=== PATIENT | male | born 1995 | race Caucasian/White ===

== ENCOUNTER 2017-06-10 20:50 | Emergency (ER) | payer OTHER ==
[~2017-06-10] VITALS: Ht 190.5 cm; Wt 123.0 kg
[~2017-06-10 20:50] MED LIST: GLUCOPHAGE1000 MG PO; METFORMIN HCL1000 MG PO; METFORMIN HCL500 MG PO; MOTRIN600 MG PO
[2017-06-10] MEDS ORDERED: NAPROSYN500 MG PO (22:32)
[2017-06-10 23:01] VITALS: BP 134/60
== END 2017-06-10 23:01 | disposition home or self-care (01) ==
LOC: EME 20:50 → EXP 20:50
DX: S83.92XA Sprain of unspecified site of left knee, initial encounter (principal); S80.02XA Contusion of left knee, initial encounter; W18.30XA Fall on same level, unspecified, initial encounter; Y93.67 Activity, basketball
CPT/HCPCS: 73564; 99281; 99284

== ENCOUNTER 2017-08-17 19:26 | Emergency (ER) | payer OTHER ==
[~2017-08-17] VITALS: Ht 190.5 cm; Wt 118.2 kg
[~2017-08-17 19:26] MED LIST changes: +NAPROSYN500 MG PO
[2017-08-17 21:41] VITALS: BP 127/92
== END 2017-08-17 21:42 | disposition home or self-care (01) ==
LOC: EME 19:26
DX: S20.219A Contusion of unspecified front wall of thorax, initial encounter (principal); W01.198A Fall on same level from slipping, tripping and stumbling with subsequent striking against other object, initial encounter; G89.29 Other chronic pain; M54.9 Dorsalgia, unspecified; F41.9 Anxiety disorder, unspecified; F32.9 Major depressive disorder, single episode, unspecified; F17.200 Nicotine dependence, unspecified, uncomplicated
CPT/HCPCS: 71046; 99281; 99283